=== PATIENT | female | born 1995 | race Caucasian/White ===

== ENCOUNTER 2020-08-22 15:32 | Outpatient (CLI) | payer SELFPAY ==
[2020-08-22 16:32] LABS: Alanine Aminotransferase 46 U/L (0-33); Albumin Level 4.3 g/dL (3.5-5.2); Alkaline Phosphatase 73 IU/L (35-105); Aspartate Amino Transferase 35 U/L (0-32); Blood Urea Nitrogen 7 mg/dL (6-20); Calcium 9.4 mg/dL (8.5-10.5); Carbon Dioxide 23 mmol/L (22-29); Chloride 104 mmol/L (98-107); Globulin 3.5 g/dL (1.3-4.6); Glomerular Filtration Rate 121.8 mL/min (90-130); Glucose 136 mg/dL (65-115); Osmolality Calculated 288 mOsm/kg (285-295); Sodium 139 mmol/L (136-145); Total Bilirubin 0.5 mg/dL (0.15-1.2); Total Protein 7.8 g/dL (6.6-8.7)
== END 2020-08-22 15:33 | disposition home or self-care (01) ==
LOC: LAB 15:35
PROVIDERS: PCP Family Medicine; Visit Provider General Practice
DX: I10 Essential (primary) hypertension (principal)
CPT/HCPCS: 80053; 85025

== ENCOUNTER 2020-12-20 14:48 | Outpatient (CLI) | payer MEDICAID, SELFPAY ==
--- NOTE | 2020-12-20 14:55 | US_ITS ---
WS: [id number] TRANSABDOMINAL PELVIC AND TRANSVAGINAL PELVIC ULTRASOUND HISTORY: POLYCYSTIC OVARY SYNDROME COMPARISON: 09/08/2018 Uterus: 10.2 cm x 5.0 cm x 4.5 cm. Mildly enlarged anteverted uterus. No fibroid or mass. Endometrium: 1.0 cm. Normal size and echogenicity. Right ovary: 4.5 cm x 3.1 cm x 3.0 cm. Slightly enlarged ovary. There are no peripheral cysts to sugg est polycystic ovary disease. Normal vascularity. Left ovary: 3.8 cm x 3.2 cm x 2.7 cm. Slightly enlarged ovary. There are no peripheral cyst suggest p olycystic ovarian disease. Normal vascularity. No free fluid. US/US pelvic with transvaginal IMPRESSION: 1. Very minimally enlarged ovaries. No peripheral cysts to suggest polycystic ovarian disease. 2. Otherwise negative.
== END 2020-12-20 14:49 | disposition home or self-care (01) ==
LOC: US 14:53
PROVIDERS: PCP Family Medicine; Visit Provider Family Medicine
DX: E28.2 Polycystic ovarian syndrome (principal)
CPT/HCPCS: 76830; 76856

== ENCOUNTER 2021-03-25 15:11 | Outpatient (CLI) | payer MEDICAID, SELFPAY ==
--- NOTE | 2021-03-25 15:21 | XRR_ITS ---
PROCEDURE INFORMATION: Exam: XR Left Knee Exam date and time: 03/25/2021 3:22 PM Age: 25 years old Clinical indication: Pain; Knee; Left; Additional info: Chronic left knee pain; Instability of joint TECHNIQUE: Imaging protocol: XR Left knee. Views: 3 views. Total images: 3 COMPARISON: CR Knee 4 views, LEFT [id number] 07/23/2018 12:48 AM FINDINGS: Bones/joints: No visible acute osseous abnormality, fracture, subluxation, or dislocation. No radiographically visible joint effusion. Soft tissues: Soft tissues without evidence of edema, swelling, contusion, emphysema, or radiopaque foreign body. XR/XR knee LT 3V* [id number] IMPRESSION: Nonacute.
== END 2021-03-25 15:12 | disposition home or self-care (01) ==
LOC: RAD 15:17
PROVIDERS: PCP Registered Nurse; Visit Provider Registered Nurse
DX: M25.562 Pain in left knee (principal); G89.29 Other chronic pain; M25.362 Other instability, left knee
CPT/HCPCS: 73562

== ENCOUNTER 2021-03-30 10:10 | Emergency (ER) | payer MEDICAID, SELFPAY ==
--- NOTE | 2021-03-30 10:25 | W.ED.FEMALGU ---
HPI - Female Genitourinary General: Chief complaint: Abdominal Pain Stated complaint: LOWER ABDOMEN PAIN, VAGINAL PAIN AND PRESSURE Time Seen by Provider: 03/30/21 10:25 History of Present Illness: HPI Narrative: Patient comes in with vaginal discharge comfort. Patient reports that she noticed pain and some swelling to her vaginal area starting at 3:00 in the morning. Patient has a history of PCOS, diabetes, obesity, and hypertension. MD elicited complaint: vaginal discharge and pelvic pain Onset (ago): hour(s) Location of symptoms: vaginal Severity: moderate Quality of pain: sharp Consistency: intermittent Vaginal discharge: white Vaginal bleeding: none Urinary symptoms: Foul Smelling Urine Exacerbating factors: none Relieving factors: none Associated symptoms: Reports vaginal discharge Treatment prior to arrival: none Sexual activity: Yes Patient : No Possible : unsure if Date of Last Menstrual Period: 12/30/20 Review of Systems General: Reports: 10 or more systems reviewed and unremarkable except in HPI and below : Reports: vaginal discharge PFS ED PFSH: Social History (Updated 05/22/20 @ 17:36 by Luz Marina Kingston LPN) Smoking and tobacco status: never smoked Current gender identity: Female Female Reproductive History: Date of last menstrual period: 12/30/20 Physical Exam Const: COMMON NORMALS: no acute distress and patient oriented x3 GENERAL APPEARANCE: cooperative HENMT: COMMON NORMALS: normocephalic and Normal external nose present HEAD & SCALP: normal to inspection and normocephalic NOSE: Normal external nose present MOUTH: Normal oral and palatal mucosa present Eye: GENERAL EYE: appearance normal, both eyes and all related structures Neck/C-Spine: COMMON NORMALS: full ROM Chest: COMMONS NORMALS: normal inspection of the chest Resp: COMMON NORMALS: normal respiratory effort EFFORT & INSPECTION: Yes able to speak in complete sentences Cardio: COMMON NORMALS: regular rate and regular rhythm RATE: regular rate RHYTHM: regular rhythm GI: COMMON NORMALS: non-tender : COMMON NORMALS: Yes no CVA tenderness BLADDER/KIDNEY EXAM: Yes no CVA tenderness EXTERNAL FEMALE EXAM: Yes erythema and Yes external swelling BIMANUAL EXAM - ADNEXA, OTHER: Yes normal rectovaginal exam RECTO-VAGINAL: normal rectovaginal exam Back/Pelvis: COMMON NORMALS: no CVA tenderness Extremity: COMMON NORMALS: normal to inspection Neuro: COMMON NORMALS: patient oriented x3 and moves all extremities Psych: COMMON NORMALS: mental status grossly normal and cooperative Skin: COMMON NORMALS: no rashes or lesions noted GENERAL SKIN EXAM: no rashes or lesions noted Course Vital Signs: Vital signs: Vital Signs Temperature 97.6 F 03/30/21 10:27 Pulse Rate 87 03/30/21 10:27 Respiratory Rate 18 03/30/21 10:27 Blood Pressure 180/111 03/30/21 10:27 Pulse Oximetry 98 03/30/21 10:27 MDM - Female MDM Narrative: Medical decision making narrative: 25-year-old female comes in today with vaginal discomfort and swelling. On exam we note abdomen is soft nontender. Vaginal area is erythematous with significant drainage. Differential diagnosis includes STI, vaginitis, candidiasis. Urinalysis had some white blood cells and red blood cells in it. Wet prep had a large amount of trichomonas. Outstanding labs include gonorrhea and chlamydia test. Patient was treated for trichomonas with 2,000 metronidazole. Recommended partner to be treated also, patient stated understanding Lab Data: Labs: Lab Results 03/30/21 03/30/21 03/30/21 Range/Units 10:55 10:55 11:09 WBC 7.3 (4.0-10.0) 10^3/ uL RBC 4.77 (4.1-5.3) 10^6/u L Hgb 12.9 (11.5-15.3) g/dL Hct 41.7 (37.0-47.0) % MCV 87.4 (81-99) fL MCH 27.0 L (28.0-34.0) pg MCHC 30.9 (30.0-36.0) g/dL RDW 14.1 (12.1-15.1) % Plt Count 245 (130-400) 10^3/c mm MPV 10.9 H (7.4-10.4) fL Neut % (Auto) 64.1 % Lymph % (Auto) 24.7 % [place] % (Auto) 6.7 % Eos % (Auto) 3.3 % Baso % (Auto) 0.8 % Neut # (Auto) 4.70 (1.8-7.7) 10^3/u L Lymph # (Auto) 1.8 (0.8-4.8) 10^3/u L [place] # (Auto) 0.5 (0.2-0.9) 10^3/u L Eos # (Auto) 0.2 (0.0-0.8) 10^3/u L Baso # (Auto) 0.1 (0.0-0.1) 10^3/u L Nucleated RBC % (a uto) 0 % Nucleated RBCs # 0.0 /100WBC HCG, Qual Negative (Negative) Urine Color Yellow (Yellow) Urine Appearance Sl hazy (CLEAR) Urine pH 6.5 (5-7) Ur Specific Gravit y 1.020 (1.005-1.030) Urine Protein Neg (Negative) Urine Glucose (UA) Norm (Normal) Urine Ketones Negative (Negative) Urine Blood Neg (Negative) Urine Nitrate Negative (Negative) Urine Bilirubin Neg (Negative) Urine Urobilinogen Norm (Negative) mg/dL Ur Leukocyte Dayanna ase Trace H (Negative) Urine RBC None (0-2) /hpf Urine WBC 10-15 H (0-5) /hpf Ur Squamous Epith Cells 5-10 H (0-5) /hpf Amorphous Sediment Not Reportable Urine Bacteria Trace (NONE) /hpf Urine Mucus 1+ /hpf Urine Trichomonas 2+ H /hpf Discharge Plan Discharge Patient Disposition: Home Clinical Impression: Trichomonas vaginitis Condition: Stable Prescriptions: No Action diclofenac sodium 1 % gel 2 gm TOPICAL QID Qty: 100 RF: 0 hydrochlorothiazide 25 mg tablet 25 mg PO DAILY RF: 0 meloxicam 15 mg tablet 15 mg PO DAILY RF: 0 Discharge Orders: Discharge ED (Routine); Ordered 03/30/21 Ordered By: Ron Smith Referrals: Bethany Raymond [Primary Care Provider] - Discharge Diet: Usual diet Discharge Activity: Increase activity as tolerated Patient Instructions: Trichomoniasis (ED), Opioid Safety Activity Restrictions/Additional Instructions: Your sexual partners will need to be treated for infection also. Drink plenty of water. You should notice symptom relief within the next 24 to 48 hours. Follow-up with primary care in 1 week if symptoms persist. Return to the ER for new concerns. Coding Level of Care Code ED Real Estate Leasing Manager for Chg Fwd Exam Comprehensive
[2021-03-30 10:27] VITALS: BP 180/111; PULSE 87; RESP 18; TEMP 36.4; O2SAT 98; BMI 56.7
[2021-03-30 11:04] LABS: Basophils # 0.1 10^3/uL (0.0-0.1); Basophils % 0.8 %; Eosinophils # 0.2 10^3/uL (0.0-0.8); Eosinophils % 3.3 %; Hematocrit 41.7 % (37.0-47.0); Hemoglobin 12.9 g/dL (11.5-15.3); Lymphocytes # 1.8 10^3/uL (0.8-4.8); Lymphocytes % 24.7 %; Mean Corpuscular HGB Conc 30.9 g/dL (30.0-36.0); Mean Corpuscular Volume 87.4 fL (81-99); Mean Platelet Volume 10.9 fL (7.4-10.4); Monocytes # 0.5 10^3/uL (0.2-0.9); Monocytes % 6.7 %; Neutrophils % 64.1 %; Nucleated Red Blood Cells % 0 %; Platelet Count 245 10^3/cmm (130-400); Red Blood Count 4.77 10^6/uL (4.1-5.3); Red Cell Distribution Width 14.1 % (12.1-15.1); White Blood Count 7.3 10^3/uL (4.0-10.0)
[2021-03-30 11:29] LABS: HCG, Serum Qual Negative (Negative)
[2021-03-30 11:43] LABS: Urine Appearance SL Hazy (CLEAR); Urine Color Yellow (Yellow)
[2021-03-30 11:44] LABS: Add Urine Microscopic? YES; Bilirubin Urine Neg (Negative); Blood Urine Neg (Negative); Glucose Urine UA Norm (Normal); Ketones Urine Negative (Negative); Leukocyte Esterase Urine Trace (Negative); Nitrate Urine Negative (Negative); Protein Urine Neg (Negative); Urobilinogen Urine Norm (Negative); pH Urine 6.5 (5-7)
[2021-03-30 11:46] LABS: Bacteria Urine TRACE /hpf; Mucus Urine 1+ /hpf
[2021-03-30 11:48] LABS: Trichomonas Urine 2+ /hpf
[2021-03-30 11:50] LABS: Add Urine Culture? No
[2021-03-30] MEDS: metroNIDAZOLE 500 MG Tablet 2000 MG PO (12:09)
== END 2021-03-30 12:12 | disposition home or self-care (01) ==
PROVIDERS: Emergency Provider Nurse Practitioner Family; PCP Registered Nurse
DX: A59.01 Trichomonal vulvovaginitis (principal)
CPT/HCPCS: 81001; 84703; 85025; 87070; 87205; 87210; 87491; 87591; 99283

== ENCOUNTER 2021-04-22 20:27 | Emergency (ER) | payer MEDICAID, SELFPAY ==
[2021-04-22 20:44] VITALS: BP 214/138; PULSE 92; RESP 18; TEMP 36.7; O2SAT 98; BMI 57.6
--- NOTE | 2021-04-23 00:39 | CTR_ITS ---
PROCEDURE INFORMATION: Exam: CT Lumbar Spine Without Contrast Exam date and time: 04/23/2021 1:01 AM Age: 25 years old Clinical indication: Injury or trauma; Blunt trauma (contusions or hematomas); Prior surgery; Surgery type: Discectomy; Patient HX: Fall yesterday. C/O low back pain. ; Additional info: Fall, pain, loss of bladder control TECHNIQUE: Imaging protocol: Computed tomography images of the lumbar spine without contrast. Radiation optimization: All CT scans at this facility use at least one of these dose optimization techniques: automated exposure control; mA and/or kV adjustment per patient size (includes targeted exams where dose is matched to clinical indication); or iterative reconstruction. COMPARISON: [place] [id number] 02/10/2018 12:40 AM RADIATION DOSE METRICS: Total DLP (mGy-cm): 2670.8 FINDINGS: Vertebrae: Trace levocurvature of the lumbar spine noted. There is straightening of the normal lumbar lordosis with grade 1 retrolisthesis of L3 and L5. Bilateral L3 pars fracture is again seen. Stable appearance of surgical changes after posterior decompression at L3 on the left. No acute fracture seen. Vertebral body heights are well maintained. L1-L2: No significant disc protrusion. No severe spinal canal stenosis. No significant neural foraminal narrowing. L2-L3: No significant disc protrusion. No severe spinal canal stenosis. No significant neural foraminal narrowing. L3-L4: There is circumferential disc bulging, in association with [id number] bilateral facet joint arthrosis. No significant neural foraminal narrowing. Unchanged mild central spinal canal stenosis. L4-L5: There is mild disc bulging, in association mild bilateral facet joint arthrosis. No severe spinal canal stenosis. No significant neural foraminal narrowing. L5-S1: No significant disc protrusion. Mild bilateral facet joint arthrosis is present. No severe spinal canal stenosis. [id number] neural foraminal narrowing on the left. Soft tissues: Unremarkable. CT/CT lumbar spine wo con* [id number] IMPRESSION: 1. Degenerative changes of the lumbar spine, as described above. 2. No acute injury seen. Radiation Dose CTDIVOL = (mGy): DLP = 2670.8 (mGy-cm)
--- NOTE | 2021-04-23 00:40 | ED_ITS ---
HPI - Back Pain/Injury General: Chief Complaint: Back Pain/Injury Stated Complaint: Fall Lower Back Time Seen by Provider: 04/23/21 00:21 History of Present Illness: HPI Narrative: Patient is a well-appearing 25-year-old female seen for back pain and loss of bladder control. She states that she was walking in her muddy front yard when she slipped and fell forward, arching her back backward. She do not hear a pop or snap, but states that she had immediate onset of 9 of 10 pain which she locates to the midline lower back. Her pain is worse with motion and better with rest. She has been able to walk, however she states that she lost control of her bladder and did not know she was urinating. She denies history of dysuria or frequency. She states that she has had back surgery in the past and that prior to back surgery, she had 3 weeks during which she could not control her bladder. She denies striking her head and has no other acute complaints. Review of Systems General: Reports: 10 or more systems reviewed and unremarkable except in HPI and below PFSH ED PFSH: Social History (Updated 05/22/20 @ 17:36 by Luz Marina Kingston LPN) Smoking and tobacco status: never smoked Current gender identity: Female Female Reproductive History: Date of last menstrual period: 12/30/20 Physical Exam Const: COMMON NORMALS: no acute distress, patient oriented x3 and alert HENMT: COMMON NORMALS: normocephalic and atraumatic HEAD & SCALP: normocephalic and atraumatic Eye: COMMON NORMALS: Equal, round and reactive pupils present, EOMs intact bilaterally and no scleral icterus PUPIL: Yes Equal, round and reactive pupils present Resp: COMMON NORMALS: normal respiratory effort and No retractions Cardio: COMMON NORMALS: regular rate, regular rhythm and No murmurs present (Cardio) RATE: regular rate RHYTHM: regular rhythm GI: COMMON NORMALS: Normal to inspection, nondistended, normoactive bowel sounds present, Soft to palpation and non-tender PALPATION: Yes Soft to palpation : COMMON NORMALS: Yes no CVA tenderness BLADDER/KIDNEY EXAM: Yes no CVA tenderness Back/Pelvis: COMMON NORMALS: no CVA tenderness and thoracic and lumbar spine normal to inspection THORACIC SPINE/UPPER BACK: Yes normal to inspection, Yes thoracic ROM normal, No pain with ROM, No paraspinal muscle tenderness and No paraspinal muscle spasm LUMBAR SPINE/LOWER BACK: Yes normal to inspection, Yes pain with ROM, Yes lumbar spinal tenderness, Yes paraspinal muscle tenderness and No paraspinal muscle spasm OTHER: There are no step-offs or deformities, however the patient does have tenderness with palpation of L2-L5 in the midline. She states the pain radiates in both directions but there is no muscular hypertrophy of the paraspinal musculature. Neuro: COMMON NORMALS: patient oriented x3 SENSORIUM/ORIENTATION: Yes alert Skin: COMMON NORMALS: no rashes or lesions noted GENERAL SKIN EXAM: no rashes or lesions noted Course Vital Signs: Vital signs: Vital Signs Temperature 98.1 F 04/22/21 20:44 Pulse Rate 91 04/23/21 03:00 Respiratory Rate 16 04/23/21 03:00 Blood Pressure 128/79 04/23/21 03:00 Pulse Oximetry 96 04/23/21 03:00 MDM - Back Pain/Injury MDM Narrative: Medical decision making narrative: Patient remained hemodynamically stable throughout ED course. CT of the lumbar spine shows no evidence of acute fracture or dislocation or injury. She is able to walk and has no saddle paresthesia. After initially losing control of her bladder, she is not able to control it. I do not suspect any emergent process warranting further work-up at this time. She will discharged home in stable improved condition with follow-up to primary care as any. Imaging Data^: Other CT: Radiologist's impression: IMPRESSION: 1. Degenerative changes of the lumbar spine, as described above. 2. No acute injury seen. Discharge Plan Discharge Patient Disposition: Home Clinical Impression: Strain of lumbar region Qualifiers: Encounter type: initial encounter Qualified Code(s): S39.012A - Strain of muscle, fascia and tendon of lower back, initial encounter Condition: Stable Prescriptions: No Action diclofenac sodium 1 % gel 2 gm TOPICAL QID Qty: 100 RF: 0 hydrochlorothiazide 25 mg tablet 25 mg PO DAILY RF: 0 meloxicam 15 mg tablet 15 mg PO DAILY RF: 0 Discharge Orders: Discharge ED (Routine); Ordered 04/23/21 Ordered By: Dominguez Head Referrals: Bethany Raymond [Primary Care Provider] - Discharge Diet: Usual diet Discharge Activity: Increase activity as tolerated Patient Instructions: Opioid Safety Activity Restrictions/Additional Instructions: Fortunately, the CT scan of your back shows no evidence of fracture or dislocation or acute injury. I suspect lumbar strain as the cause of your pain after a fall. Please take [id number] medication as needed for pain and make every attempt not to reinjure your back in the next several days. Coding Level of Care Code ED Hide Inspector for Cameron Fwd Exam Comprehensive
[2021-04-23 00:56] VITALS: RESP 18
[2021-04-23] MEDS: morphine 4 mg/mL SDV 1 mL 8 MG IM (00:56)
[2021-04-23 01:18] VITALS: BP 183/91; PULSE 89; RESP 16; O2SAT 96
[2021-04-23 02:30] VITALS: BP 157/97; PULSE 89; RESP 15; O2SAT 96
[2021-04-23 03:00] VITALS: BP 128/79; PULSE 91; RESP 16; O2SAT 96
[2021-04-23 04:03] VITALS: BP 144/94; PULSE 87; RESP 16; TEMP 36.7; O2SAT 95
== END 2021-04-23 04:03 | disposition home or self-care (01) ==
PROVIDERS: Emergency Provider Student in an Organized Health Care Education/Training Program; PCP Registered Nurse
DX: S39.012A Strain of muscle, fascia and tendon of lower back, initial encounter (principal); W01.0XXA Fall on same level from slipping, tripping and stumbling without subsequent striking against object, initial encounter; Y92.007 Garden or yard of unspecified non-institutional (private) residence as the place of occurrence of the external cause
CPT/HCPCS: 72131; 96372; 99283; J2270

== ENCOUNTER 2021-05-21 14:38 | Outpatient (CLI) | payer MEDICAID, SELFPAY ==
--- NOTE | 2021-05-21 14:42 | MR_ITS ---
WS: [id number] MRI LEFT KNEE HISTORY: CHRONIC PAIN LEFT Knee; instability LEFT KNEE JOINT COMPARISON: Radiographs 03/25/2021 Limited quality evaluation due to body habitus. Anterior cruciate ligament: Intact. Posterior cruciate ligament: Intact. Medial collateral ligament: Intact. Posterior lateral corner structures: Intact. Medial menisci: Intact. Normal signal, size and shape. Lateral meniscus: Intact. Normal signal, size and shape. Extensor mechanism: Quadriceps tendon is poorly visualized. Patellar tendon is normal. Fluid and soft tissue: No significant joint effusion. There is a small Ho's cyst. Osseous and articular structures: Patellofemoral compartment: Normal. Medial compartment: Negative. Lateral compartment: Negative. MR/MR knee LT wo con* [id number] IMPRESSION: 1. Quality of exam is limited by body habitus. 2. Small Ho's cyst. 3. No meniscal tear.
== END 2021-05-21 14:39 | disposition home or self-care (01) ==
LOC: RADSHAW 14:40
PROVIDERS: PCP Registered Nurse; Visit Provider Registered Nurse
DX: M25.562 Pain in left knee (principal); G89.29 Other chronic pain; M25.362 Other instability, left knee; M71.22 Synovial cyst of popliteal space [Baker], left knee
CPT/HCPCS: 73721